=== PATIENT | male | born 1980 | race Hispanic/Latino ===

== ENCOUNTER 2022-12-21 22:38 | Emergency (ER) | payer OTHER ==
[2022-12-21 22:42] VITALS: BP 123/89
[2022-12-21 22:45] VITALS: BP 129/98
[2022-12-21 22:46] VITALS: BP 138/86
[2022-12-21 23:00] VITALS: BP 126/83
[2022-12-22] MEDS ORDERED: NAPROXEN500 MG PO (00:01)
[2022-12-22] MEDS ORDERED: CYCLOBENZAPRINE10 MG PO (00:01)
[2022-12-22 00:11] VITALS: BP 138/86
== END 2022-12-22 00:14 | disposition home or self-care (01) | DRG 552 ==
LOC: ED 22:38
DX: S13.9XXA Sprain of joints and ligaments of unspecified parts of neck, initial encounter (principal); V49.50XA Passenger injured in collision with unspecified motor vehicles in traffic accident, initial encounter; S33.5XXA Sprain of ligaments of lumbar spine, initial encounter